=== PATIENT | female | born 1965 | race Caucasian/White ===

== ENCOUNTER 2016-12-30 07:40 | Day surgery (SDC) | payer BC ==
[~2016-12-30] VITALS: Ht 167.6 cm; Wt 108.9 kg
== END 2016-12-30 09:40 | disposition short-term general hospital (02) ==
LOC: SURGOP 07:40
PROC: 0DJD8ZZ Inspection of Lower Intestinal Tract, Via Natural or Artificial Opening Endoscopic (ICD-10-PCS; principal; 2016-12-30)
DX: Z12.11 Encounter for screening for malignant neoplasm of colon (principal); E66.9 Obesity, unspecified; G56.00 Carpal tunnel syndrome, unspecified upper limb; M15.9 Polyosteoarthritis, unspecified; H93.19 Tinnitus, unspecified ear; J32.9 Chronic sinusitis, unspecified; M72.2 Plantar fascial fibromatosis; Z98.818 Other dental procedure status; Z79.52 Long term (current) use of systemic steroids; Z79.899 Other long term (current) drug therapy; Z87.891 Personal history of nicotine dependence; Z82.49 Family history of ischemic heart disease and other diseases of the circulatory system; Z83.3 Family history of diabetes mellitus; Z80.42 Family history of malignant neoplasm of prostate
CPT/HCPCS: J2175; J2250

== ENCOUNTER → 2017-03-29 | Outpatient (CLI) | payer BC | END | disposition short-term general hospital (02) | LOC: CLENT 10:03 | DX: H93.13 Tinnitus, bilateral (principal); E66.3 Overweight ==